=== PATIENT | female | born 1965 | race Caucasian/White ===

== ENCOUNTER 2017-06-27 06:10 | Observation (INO) | payer OTHER ==
[2017-06-27] MEDS: IOHEXOL 300MG/ML 30 ML BTL
[2017-06-27] MEDS ORDERED: MIDAZOLAM 1 MG/ML 2 ML INJ (08:05)
[2017-06-27] MEDS: CEFAZOLIN 1 GM/50 ML (PMX) 50 ML IVPB (08:30)
[2017-06-27] MEDS ORDERED: FENTAnyl 50 MCG/ML VIAL ×2 (09:14→10:13)
[2017-06-27] MEDS ORDERED: LIDOCAINE 2% (SDV) 5 ML INJ (09:46)
[2017-06-27] MEDS ORDERED: PROPOFOL 20 ML (09:47)
[2017-06-27] MEDS ORDERED: ONDANSETRON 4 MG INJ (09:47)
[2017-06-27] MEDS ORDERED: CEFAZOLIN 1 GM INJ (09:47)
[2017-06-27] MEDS: FENTAnyl 50 MCG/ML VIAL IV ×3 (10:16→10:59)
[2017-06-27] MEDS ORDERED: ONDANSETRON 4 MG INJ IV (10:30)
[2017-06-27] MEDS ORDERED: DIPHENHYDRAMINE 50 MG INJ IV (10:30)
[2017-06-27] MEDS: HYDROCODONE/APAP (5/325) TAB PO ×2 (11:30→13:33)
[2017-06-27] MEDS: KETOROLAC 30 MG INJ IV (15:40)
[2017-06-27] MEDS ORDERED: HYDROCODONE/APAP (5/325) TAB PO (16:00)
[2017-06-27] MEDS ORDERED: morphine 2 MG INJ IV (16:00)
[2017-06-27] MEDS: D5-NS + KCL 20 MEQ 1,000 ML IV (21:28)
[2017-06-27] MEDS: METOPROLOL TARTRATE 25 MG PO (23:00)
[2017-06-27] MEDS: ONDANSETRON 4 MG INJ IV (23:20)
[2017-06-28] MEDS: D5-NS + KCL 20 MEQ 1,000 ML IV ×2 (02:00→12:00)
[2017-06-28] MEDS: KETOROLAC 30 MG INJ IV ×2 (02:13→08:38)
[2017-06-28 05:30] LABS: ADD MAN DIFF? NO
[2017-06-28 05:33] LABS: BASOPHILS % 0.2 % (0.0-2.0); EOSINOPHILS # 0.1 10^3/ul (0.0-0.5); EOSINOPHILS % 1.5 % (0.0-7.0); HEMATOCRIT 34.2 % (37.0-47.0); HEMOGLOBIN 11.3 g/dl (12.0-16.0); LYMPHOCYTES # 1.7 10^3/ul (0.8-2.9); LYMPHOCYTES % 30.5 % (15.0-51.0); MEAN CORPUSCULAR HEMOGLOBIN 31.1 pg (29.0-33.0); MEAN CORPUSCULAR VOLUME 94.2 fl (82.0-101.0); MEAN PLATELET VOLUME 10.2 fl (7.4-10.4); MONOCYTE # 0.6 10^3/ul (0.3-0.9); MONOCYTES % 10.4 % (0.0-11.0); NEUTROPHIL # 3.1 10^3/ul (1.6-7.5); PLATELET COUNT 188 10^3/UL (140-415); RED BLOOD COUNT 3.63 10^6/ul (4.20-5.40); RED CELL DISTRIBUTION WIDTH 13.1 % (11.5-14.5)
[2017-06-28 05:33] LABS: WHITE BLOOD COUNT 5.5 10^3/ul (4.8-10.8)
[2017-06-28 05:49] LABS: ANION GAP 15 (8-16); BLOOD UREA NITROGEN 12 mg/dl (7-20); CALCIUM 8.6 mg/dl (8.4-10.2); CARBON DIOXIDE 27 mmol/L (21-31); CHLORIDE 108 mmol/L (97-110); CREATININE 0.97 mg/dl (0.44-1.00); GLUCOSE 113 mg/dl (70-220); POTASSIUM 4.1 mmol/L (3.5-5.1); SODIUM 146 mmol/L (135-144)
[2017-06-28] MEDS: PANTOPRAZOLE (EC) 40 MG TAB PO (06:11)
[2017-06-28] MEDS: VALSARTAN HCTZ PO (09:00)
== END 2017-06-28 15:51 | disposition home or self-care (01) ==
LOC: SDS 06:10 → REC 15:50 → MS1 17:40
DX: N20.0 Calculus of kidney (principal); I10 Essential (primary) hypertension; M19.90 Unspecified osteoarthritis, unspecified site; E78.5 Hyperlipidemia, unspecified; E66.01 Morbid (severe) obesity due to excess calories; Z68.41 Body mass index [BMI] 40.0-44.9, adult; Z88.6 Allergy status to analgesic agent; Z87.440 Personal history of urinary (tract) infections
CPT/HCPCS: 52356; 71045; 74420; 80048; 85025; 88300; 99217